=== PATIENT | male | born 1960 | race Caucasian/White ===

== ENCOUNTER 2018-09-13 11:34 | Day surgery (SDC) | payer OTHER ==
[~2018-09-13] VITALS: Ht 165.1 cm; Wt 70.4 kg
[2018-09-13 12:21] VITALS: Ht 165.1 cm; Wt 70.4 kg
[2018-09-13] MEDS ORDERED: acyclovir (12:25)
[2018-09-13 12:49] VITALS: BP 103/62; PULSE 73; RESP 16
--- NOTE | 2018-09-13 13:15 | PREAC ---
Date/Time of Note Date/Time of Note DATE: 09/13/18 TIME: 13:13 Anesthesia Eval and Record Evaluation Time Pre-Procedure Interview DATE: 09/13/18 TIME: 13:13 Age 57 Sex male NPO: 8 hrs Preoperative diagnosis ABDOMINAL PAIN, CHANGE IN BOWEL HABITS Planned procedure EGD, COLONOSCOPY WITH BIOPSIES Past Medical History Past Medical History: Includes (SMOKES) Recreational drugs: Marijuana Surgery & Anesthesia Issues No known issue Meds Anticoagulation: No Beta Rio within 24 hr: No Reason Beta Rio not given: Pt. not on B-Rio Reported Medications [acyclovir] No Conflict Check 09/13/18 Meds reviewed: Yes Allergies Coded Allergies: Penicillins (Verified Allergy, Unknown, 09/13/18) Allergies Reviewed: Yes Labs/Studies Labs Reviewed: Reviewed by anesthesiologist test: N/A Pre-procedure Exam Last vitals Vital Signs Date Temp Pulse Resp B/P (MAP) Pulse Ox O2 O2 Flow FiO2 Time Delivery Rate 09/13/18 98.1 73 16 103/62 99 Room Air 12:49 (76) Airway: Adequate mouth opening, Adequate thyromental dist Mallampati: Mallampati II Teeth: Normal Lung: Normal Heart: Normal ASA Physical Status ASA physical status: 2 Emergency: None Planned Anesthetic General/MAC: MAC Planned Pain Management Parenteral pain med Pre-operative Attestations Prior to commencing anesthesia and surgery, the patient was re-evaluated, there was verification of: *The patient's identity *The results of appropriate recent lab work and preoperative vital signs *The above evaluation not changing prior to induction *Anesthetic plan, risk benefits, alternative and complications discussed with patient/family; questions answered; patient/family understands, accepts and wishes to proceed. Toby Mesa M.D. September 13, 2018 13:15
[2018-09-13] MEDS ORDERED: LIDOCAINE 100 MG SYRINGE ONE (13:32)
[2018-09-13] MEDS ORDERED: PROPOFOL 40 ML ONE (13:32)
[2018-09-13] MEDS ORDERED: FENTAnyl 50 MCG/ML VIAL ONE (13:33)
--- NOTE | 2018-09-13 14:08 | PAC ---
Date/Time of Note Date/Time of Note DATE: 09/13/18 TIME: 14:08 Post-Anesthesia Notes Post-Anesthesia Note Last documented vital signs Vital Signs Date Temp Pulse Resp B/P (MAP) Pulse Ox O2 O2 Flow FiO2 Time Delivery Rate 09/13/18 98.1 73 16 103/62 99 Room Air 12:49 (76) Activity: WNL Respiratory function: WNL Cardiovascular function: WNL Mental status: Baseline Pain reasonably controlled: Yes Hydration appropriate: Yes Nausea/Vomiting absent: Yes Toby Mesa M.D. September 13, 2018 14:08
[2018-09-13 14:35] VITALS: BP 100/69; PULSE 60; RESP 18
--- NOTE | 2018-09-14 06:55 | CONS ---
DATE OF ADMISSION: 09/13/2018 DATE OF CONSULTATION: PATIENT NAME: CHASE DE LA TORRE TYPE OF CONSULTATION: Preoperative gastroenterology. Dear Dr. Estes: I thank you very much for this kind referral. HISTORY OF PRESENT ILLNESS: Mr. Chase De La Torre is a 57-year-old male patient who has been referred t o me for further evaluation of upper abdominal pain, not responding to therapy with omeprazole. The patient went to the emergency room and he had abdominal CT scan done. He was noted to have thickenin g of the lower end of the esophagus. His appetite has been poor and he states that he has been losin g weight. No history of gallstones or liver disease. The patient also complains of change in the jesica wel habit with change in the caliber of the stool. The patient is status post surgery for perforated diverticulitis with temporary colostomy and reversal. The patient has family history of colon cance r. Not a hypertensive or diabetic. No heart disease, lung problem or kidney disease. The patient t akes acyclovir for herpes. SOCIAL HISTORY: Nonsmoker, but smokes marijuana. No alcohol abuse. FAMILY HISTORY: No family history of gastrointestinal tract neoplasm. ALLERGIES: PENICILLIN. MEDICATIONS: 1. Omeprazole. 2. Acyclovir. PHYSICAL EXAMINATION: VITAL SIGNS: He is 5 feet, 6 inches tall and weighs 145 pounds. HEART: Normal heart sounds. LUNGS: Clear. ABDOMEN: Soft. No masses. Normal bowel sounds. NEUROLOGIC: Normal. IMPRESSION: 1. Upper abdominal pain, not responding to therapy with omeprazole. 2. Loss of appetite and weight loss. 3. The patient had abdominal CT scan and he was noted to have thickening of the esophageal wall at t he lower end. 4. Change in the bowel habit with change in the caliber of the stool. 5. Status post sigmoid resection for perforated sigmoid colon. 6. Status post temporary colostomy with reversal. 7. Family history of colon cancer. 8. History of herpes and the patient is on acyclovir. 9. The patient smokes marijuana. 10. ALLERGY TO PENICILLIN. PLAN: 1. Endoscopy and colonoscopy for further evaluation. 2. Because of the marijuana use, he will be resistant to narcotics and he needs monitored anesthesia care. The procedures and possible complications are well explained to the patient. He understands and cons ents to the procedures. I thank you once again. With warmest personal regards, Dictated By: BARRERA SIMMONS/MERT Conf#: [id number] DID#: [id number]
== END 2018-09-13 15:55 | disposition home or self-care (01) ==
LOC: GIL 11:34
PROVIDERS: ATTEND Internal Medicine Gastroenterology
DX: R19.4 Change in bowel habit (principal); K64.8 Other hemorrhoids; K21.9 Gastro-esophageal reflux disease without esophagitis
CPT/HCPCS: 43239; 45378; 88305; J2001; J3010; 88312